=== PATIENT | male | born 1945 ===

== ENCOUNTER 2018-05-13 07:05 | Day surgery (SDC) | payer MEDICARE ==
[2018-05-12 15:50] VITALS: BMI 29.0
[2018-05-13] MEDS ORDERED: Bupivacaine 0.5% Inj(30mL) ONE (07:44)
[2018-05-13] MEDS ORDERED: Iohexol 300 100 ML IJ ONE ×2 (07:44→10:37)
--- NOTE | 2018-05-13 07:51 | CP.SDSHP ---
Same Day Surgery H & P - History Proposed Procedure: Laparoscopic cholecystectomy intra op cholangiogram Pre-Op Diagnosis: Cholelithiasis - Previous Medical/Surgical History Pain: 4.Moderate Pain Previous Surgical History: appendectomy, inguinal hernia repair, fistulotomy - Allergies Allergies: Allergies No Known Allergies Allergy (Verified 05/12/18 15:50) - Current Medications Current Medications: zoloft, ambien - Physical Exam General Appearance: NAD Mental Status: Alert & Oriented x3 Neuro: WNL Heart: WNL Lungs: WNL GI: Other (RUQ TTP) - {Optional Preform as Required} Abdomen: Other (RUQ TTP) Integument: WNL Ortho: WNL ENT: WNL - Impression Impression: cholelithiasis Pt. Evaluated Today:Candidate for Anesthesia & Procedure: Yes - Date & Time Date: 05/13/18 Time: 07:52 Short Stay Discharge - Short Stay Discharge Admitting Diagnosis/Reason for Visit: K80.10 Disposition: HOME/ ROUTINE Referrals: Ralph Rodríguez MD [Staff Provider] - Additional Instructions (Diet, Activity): follow up at Dr. Rodríguez's office in 1 -2 weeks Low fat diet no heavy lifting over 15 lbs for 1 month Ok to return to work next week OK to shower in 2 days
[2018-05-13] MEDS ORDERED: Lactated Ringer's 1,000 ML IV ONE ×2 (08:20→10:24)
[2018-05-13] MEDS ORDERED: Propofol 10 mg/ml Inj (20 ML) ONE (08:22)
[2018-05-13] MEDS ORDERED: Phenylephrine 10 mg/ml Inj ONE (08:22)
[2018-05-13] MEDS ORDERED: ePHEDrine 50 mg/ml Inj ONE (08:22)
[2018-05-13] MEDS ORDERED: Succinylcholine 200 mg/10 ml Inj IV ONE (08:22)
[2018-05-13] MEDS ORDERED: Rocuronium 10 mg/ml (5 ml) ONE (08:22)
[2018-05-13] MEDS ORDERED: Midazolam 2 MG/2 ML VIAL ONE (08:22)
[2018-05-13] MEDS ORDERED: Sodium Chloride 0.9% 10 ML IV ONE (08:27)
[2018-05-13] MEDS ORDERED: Desflurane Inhalation Anesthetic Liq (240 ml) ONE (08:29)
--- NOTE | 2018-05-13 08:47 | RAD ---
Date of service: 05/13/2018 HISTORY: Preoperative examination COMPARISON: No prior. TECHNIQUE: Chest PA and lateral FINDINGS: LINES AND TUBES: None. LUNG AND PLEURA: The lungs are well inflated and clear. No pleural effusion or pneumothorax. HEART AND MEDIASTINUM: The heart is not enlarged. Atherosclerotic aortic arch calcifications are present. The hilar and mediastinal contours are within normal limits. SKELETAL STRUCTURES: The bony structures are within normal limits for the patient's age. VISUALIZED UPPER ABDOMEN: Normal. OTHER FINDINGS: None. IMPRESSION: No active pulmonary disease.
[2018-05-13] MEDS ORDERED: Bupivacaine 0.5% 50 ML IJ ONE ×3 (10:05→11:22)
[2018-05-13] MEDS ORDERED: Sodium Chloride 0.45% 1,000 ML IV ONE (10:24)
[2018-05-13] MEDS ORDERED: Neostigmine 1:1000 (1 mg/ml) Inj ONE (11:03)
--- NOTE | 2018-05-13 11:37 | PCM.SURG1 ---
Surgeon's Initial Post Op Note - Surgeon's Notes Surgeon: Dr. Gaston Automobile Rental Agent: Dr. Christian Brooke, PGY 3, Dr. Denice Case, PGY 1 Type of Anesthesia: General Endo Pre-Operative Diagnosis: Cholelithiasis Operative Findings: Cholelithiasis Post-Operative Diagnosis: same Operation Performed: Cholecytesctomy Specimen/Specimens Removed: Gallbladder specimen with stones Estimated Blood Loss: EBL {In ML}: 25 Blood Products Given: N/A Drains Used: No Drains Post-Op Condition: Fair Date of Surgery/Procedure: 05/13/18 Time of Surgery/Procedure: 09:30
[2018-05-13] MEDS ORDERED: Oxycodone/Acetaminophen 5/325 mg Tab PO PRN (11:41)
[2018-05-13] MEDS ORDERED: Dextrose 5%/Lactated Ringer's 1,000 ML IV SCH (11:45)
--- NOTE | 2018-05-13 12:03 | PCM.OP ---
Operative Report - Operative Report Date of Surgery/Procedure: 05/13/18 Time of Surgery/Procedure: 12:00 Surgeon: Dr. Gaston Sports Book Writer: Christian Brooke PGY3 Denice Worthington PGY1 Anesthesia/Sedation: General anesthesia , Dr. Best Pre-Operative Diagnosis: Cholelithiasis Post-Operative Diagnosis: Cholelithiasis Indication for Surgery: Cholelithiasis Operative Findings: 1.5cm Gallstones x2 , fibrotic tissues and thicken gallbladder wall Procedure/Operation Description: The patient was brought to the operating room and after proper identification. Patient was intubated after the induction of appropriate anesthesia. The patient remained under general anesthesia for the duration of the case. The patient was prepped with chloroPrep over the abdomen in the usual fashion and then he was draped in the usual sterile fashion. Following the draping, the pneumoperitoneum was established via veress needle via a supraumbilical incision and insufflation was begun. After appropriate insufflation, under direct visualization, the trocar was introduced via visiport . 10 mm scope was inserted and the abdomen was visually inspected. Next, another 5 mm port was placed in subxyphoid area. This was then followed by the placement of two 5 mm ports in the usual manner on the patients right hand side just below the costal margin. The gallbladder was easily identified. There were a few adhesions. Adhesions were taken down with blunt dissection and harmonic bipolar device. No intraabdominal fluid. A generous amount of omental fat was present. Upon retraction of the gallbladder, the infundibulum was identified. After some blunt dissection, the cystic duct was identified and then skeletonized. After appropriate identification of the cystic duct, it was clipped 3 times with 2 clips staying, 1 clip going. It was then transected with scissors. This was performed without any complication. Next, a cystic artery was identified and 2 surgical clips on the proximal end and 1 surgical clip on the distal end were applied and this was transected using the laparoscopic scissors. Following this, the gallbladder was easily retracted back and hook electrocautery was used to dissect the gallbladder fossa. There was a well- established plane. We entered gallbladder, bile was suctioned off and opening was clamped with non traumatic grasper. Hemostasis was attained on the gallbladder fossa using a small amount of electrocautery. Following the removal of the gallbladder from the gallbladder fossa, it was placed in an endocatch bag and subsequently removed from the supraumbilical port site. Next, the gallbladder was thoroughly irrigated with approximately 3 liter of normal saline and then sucked dry after returning the patient to the supine position. The supraumbilical fascia was closed directly with 0 Vicryl and then the dermis was closed at all 4 incision sites with a 4-0 Monocryl absorbable monofilament. The fascia was closed in a simple interrupted manner. Dermabond was applied over the incision sites. The patient was awakened from anesthesia. Estimated Blood Loss: 50 Sponge/Instrument Count: correct Drains: None Complications: None Specimen: Gallbladder and stones Discharge & Condition: The patient was returned to post-anesthesia care unit in a stable condition.
[2018-05-13 13:15] VITALS: RESP 18
[2018-05-13 16:26] VITALS: BP 113/70; PULSE 75; TEMP 97.4; O2SAT 99
--- NOTE | 2018-05-13 20:44 | CARD ---
APPROVED REPORT Date of service: 05/13/2018 EKG Measurement Heart [id number] <Conclusion> Sinus bradycardia Otherwise normal ECG
--- NOTE | 2018-05-13 21:10 | OP ---
PROCEDURE DATE: 05/13/2018 TIME OF SURGERY: 11:00. SURGEON: Ralph Gaston MD ASSISTANTS: Christian Brooke DO and ANESTHESIA GIVEN BY: Ramila Cabrera MD ANESTHESIA: General anesthesia. PREOPERATIVE DIAGNOSIS: Cholelithiasis. POSTOPERATIVE DIAGNOSIS: Cholelithiasis. INDICATION FOR SURGERY: Cholelithiasis. OPERATIVE FINDINGS: 1.5 cm gallstones x2, fibrotic tissues and thickened gallbladder wall. OPERATIVE DESCRIPTION: The patient was brought to the operative room and after proper identification, the patient was intubated after induction of appropriate anesthesia. The patient was remained under general anesthesia for the duration of the case. The patient was prepped with a ChloraPrep over the abdomen in the usual fashion and draped in the usual sterile fashion. Following the draping, the pneumoperitoneum was established via Veress needle via the supraumbilical incision and insufflation was begun. After appropriate insufflation under direct visualization, the trocar was introduced via Visiport. A 10-mm scope was inserted and the abdomen was visually inspected. Another 5-mm port was placed in subxiphoid area. This was then followed by the placement of two 5-mm ports in the usual manner on the patient's right side just below the coastal margin. The gallbladder was identified. There were few adhesions. The adhesions were taken down with a blunt dissection and the Harmonic bipolar device. No intra-abdominal fluid was noted. A general amount of omental fat was present. Upon retraction of the gallbladder, the infundibulum was identified. After some blunt dissections, the cecum was identified and was skeletonized. After appropriate identification of the cystic duct, it was clipped three times with clips staying and one clip going. It was then resected with scissors. This was performed without any complication. The cystic artery was identified, and two surgical clips were placed proximally and one surgical clip on the distal end was applied. This was transected using Endo Clay. Following this, gallbladder was retracted back and using hook electrocautery, it was used to dissect the gallbladder off the gallbladder fossa. There was well established plane. We entered the gallbladder. Bile duct was suctioned off, and the opening was clamped with nontraumatic grasper. Hemostasis was obtained in the gallbladder fossa using a small amount of electrocautery. Following the removal of the gallbladder from the gallbladder fossa, it was placed in an EndoCatch bag and was subsequently removed from the supraumbilical port site. Next, the abdomen was thoroughly irrigated approximately with 3 L of normal saline and suctioned off. The patient was put in the supine position. The supraumbilical fascia was closed directly with 0 Vicryl and the dermis was closed with a 4-0 Monocryl absorbable monofilament. Dermabond was applied over the incision site. The patient was awakened from anesthesia. EBL was 50 mL. Sponge and instrument count was correct. No drain was placed. No complications. The specimen was gallbladder and the gallstones. The patient was returned to post PACU unit in a stable condition. Christian Brooke DO Ralph Gaston MD
== END 2018-05-13 16:30 | disposition home or self-care (01) ==
LOC: H.OPSURG 07:05
PROVIDERS: ATTEND Surgery
DX: K80.10 Calculus of gallbladder with chronic cholecystitis without obstruction (principal)
CPT/HCPCS: 36415; 47562; 71045; 71046; 86850; 86900; 88304; 93005; J0330; J0690; J2001; J2250; J2270; J2370; J2405; J2704; J2710; J3010; J7030; J7120; Q9967

== ENCOUNTER 2018-05-25 09:37 | Inpatient (IN) | payer MEDICARE ==
[2018-05-25 09:46] VITALS: BMI 24.3
[2018-05-25 09:48] VITALS: O2SAT 99
--- NOTE | 2018-05-25 10:16 | ED PDOC ---
HPI: Back Time Seen by Provider: 05/25/18 09:48 Chief Complaint (Nursing): Back Pain History Per: Patient Onset/Duration Of Symptoms: Persistent Current Symptoms Are (Timing): Still Present Quality Of Discomfort: Aching Severity: Moderate Previous Symptoms: Back Pain Additional Complaint(s): Left sided low back pain radiating to left leg, chronic, no new injury. Pt is s/p cholecystectomy 3 weeks ago. states pt is depressed and states that his life is over. Denies SI/HI Past Medical History Vital Signs: Last Vital Signs Temp 97.4 F L 05/25/18 09:46 Pulse 61 05/25/18 09:46 Resp 20 05/25/18 09:46 BP 107/64 05/25/18 09:46 Pulse Ox 99 05/25/18 09:46 - Medical History PMH: Depression Denies: Chronic Kidney Disease - Surgical History Surgical History: Appendectomy, Cholecystectomy, Endoscopy Denies: Pacemaker - Family History Family History: States: Unknown Family Hx - Home Medications Home Medications: Ambulatory Orders Medication Instructions Recorded Sertraline [Zoloft] 1 tab PO HS 05/07/18 Temazepam [Restoril] 15 mg PO DAILY 05/07/18 Zolpidem [Ambien] 10 mg PO DAILY 05/07/18 tiZANidine [Zanaflex] 2 mg PO Q8 05/07/18 ALPRAZolam [Xanax] 0.25 mg PO HS 05/25/18 Nicotine 21 mg/24 hr [Nicoderm Cq] 21 mg DE DAILY 05/25/18 - Allergies Allergies/Adverse Reactions: Allergies Allergy/AdvReac Type Severity Reaction Status Date / Time No Known Allergies Allergy Verified 05/12/18 15:50 Review of Systems ROS Statement: Except As Marked, All Systems Reviewed And Found Negative Musculoskeletal: Positive for: Back Pain Psych: Positive for: Depression Physical Exam - Reviewed Nursing Documentation Reviewed: Yes Vital Signs Reviewed: Yes - Physical Exam Appears: Positive for: Non-toxic, No Acute Distress Head Exam: Positive for: ATRAUMATIC, NORMAL INSPECTION, NORMOCEPHALIC Skin: Positive for: Normal Color, Warm, DRY Eye Exam: Positive for: EOMI, Normal appearance, PERRL ENT: Positive for: Normal ENT Inspection Neck: Positive for: Normal, Painless ROM Cardiovascular/Chest: Positive for: Regular Rate, Rhythm Respiratory: Positive for: CNT, Normal Breath Sounds Gastrointestinal/Abdominal: Positive for: Normal Exam, Soft Back: Positive for: Normal Inspection, Muscle Spasm Extremity: Positive for: Normal ROM Neurologic/Psych: Positive for: Alert, Oriented - Laboratory Results Result Diagrams: 05/25/18 10:25 05/25/18 10:25 - ECG O2 Sat by Pulse Oximetry: 99 Medical Decision Making Medical Decision Making: Medically stable for psychiatric admission Disposition - Clinical Impression Clinical Impression: Depression - Patient ED Disposition Is Patient to be Admitted: Yes - Disposition Referrals: Non [facility] Provider, [Primary Care Provider] - Disposition Time: 12:48 Condition: FAIR Forms: iTracs (Welsh) - Pt Status Changed To: Hospital Disposition Of: Inpatient - Admit Certification Admit to Inpatient:: After my assessment, the patient will require hospitalization for at least two midnights. This is because of the severity of symptoms shown, intensity of services needed, and/or the medical risk in this patient being treated as an outpatient. - POA Present On Arrival: None
[2018-05-25 10:46] LABS: BASO % 0.7 % (0.0-2.0); EOS # 0.1 K/uL (0.0-0.7); EOS % 2.1 % (0.0-4.0); HEMOGLOBIN 14.6 g/dL (12.0-18.0); LYMPH # 1.8 K/uL (1.0-4.3); LYMPH % 27.5 % (20.0-40.0); MEAN CORPUSCULAR HEMOGLOBIN 30.9 pg (27.0-31.0); MEAN CORPUSCULAR HGB CONC 32.9 g/dL (33.0-37.0); MEAN PLATELET VOLUME 7.7 fl (7.2-11.7); MONO # 0.7 K/uL (0.0-0.8); MONO % 10.1 % (0.0-10.0); NEUT % 59.6 % (50.0-75.0); NRBC % 0.1 % (0.0-0.0); RBC 4.74 Mil/uL (4.40-5.90); RED CELL DISTRIBUTION WIDTH 14.7 % (11.5-14.5); WHITE BLOOD COUNT 6.7 K/uL (4.8-10.8)
[2018-05-25 10:50] LABS: ALB/GLOB RATIO 1.3 (1.0-2.1); ALBUMIN 4.2 g/dL (3.5-5.0); ALT/SGPT 26 U/L (21-72); AST/SGOT 23 U/L (17-59); BLOOD UREA NITROGEN 16 mg/dl (9-20); CALCIUM 9.7 mg/dL (8.4-10.2); GFR NON-AFRICAN AMERICAN > 60
[2018-05-25 12:34] LABS: OPIATES, UR NEGATIVE (NEGATIVE)
[2018-05-25 12:39] LABS: BARBITURATES, UR NEGATIVE (NEGATIVE); BENZODIAZEPINES, UR POSITIVE (NEGATIVE); PHENCYCLIDINE, UR NEGATIVE (NEGATIVE)
--- NOTE | 2018-05-25 13:36 | RAD ---
Date of service: 05/25/2018 HISTORY: Depression. COMPARISON: Comparison chest 05/13/2018.. TECHNIQUE: Chest PA and lateral FINDINGS: LUNGS: Suspect minor atelectasis left medial lower lung field PLEURA: No significant pleural effusion identified. No pneumothorax apparent. CARDIOVASCULAR: . Aortic atherosclerotic calcification present. Normal cardiac size. No pulmonary vascular congestion. OSSEOUS STRUCTURES: Redemonstrated are is levoscoliosis lower thoracic and with probable compensatory dextroscoliosis in the upper thoracic region. Mild multilevel degenerative spondylosis of the thoracic spine with chronic appearing anterior wedge deformities of several mid thoracic segment VISUALIZED UPPER ABDOMEN: Normal. OTHER FINDINGS: None. IMPRESSION: Suspect minor atelectasis left medial lower lung field
--- NOTE | 2018-05-25 14:54 | RAD ---
Date of service: 05/25/2018 PROCEDURE: Radiographs of the Lumbar Spine. HISTORY: Back pain COMPARISON: No prior. FINDINGS: BONES: No acute compression fractures nor retropulsed fragments. Vertebral bodies exhibit normal stature. There appears to be slight anterior subluxation L4 over L5 and minimal levoscoliosis centered at the L2 L3 level. DISC SPACES: Multilevel degenerative spondylosis. Changes include varying degrees of disc space narrowing endplate eburnation and anterolateral as well as smaller posterior osteophyte formation. Facets are hypertrophic L5-S1 through the L2-L3 levels in decreasing order of severity. OTHER FINDINGS: Metallic clips right upper quadrant of the abdomen consistent with prior cholecystectomy. No acute fractures. Slight anterior subluxation L4 over L5. Multilevel degenerative spondylosis.
[2018-05-25] MEDS ORDERED: Alum-Mag Hydrox-Simethicone Susp (30 mL) PO PRN (16:16)
[2018-05-25] MEDS ORDERED: Magnesium Hydroxide Susp 30 ml UD PO PRN (16:16)
--- NOTE | 2018-05-25 19:35 | PCM.BM ---
<ChachaTasha C - Last Filed: 05/25/18 19:33> Treatment Plan Problems - Problems identified on initial assessmt hopeless/helpless Date Initiated: 05/25/18 Time Initiated: 19:33 Assessment reference: HP, NA Status: Active altered sleep Date Initiated: 05/25/18 Time Initiated: 19:36 Assessment reference: HP, NA Status: Active less than optimal nutrition Date Initiated: 05/25/18 Time Initiated: 19:37 Assessment reference: HP, NA Status: Active Treatment assets and liabiliti Patient Assests: adapts well, cooperative, cognitively intact Patient Liabilities: physical pain, medical problems, language/speech - Milieu Protocol Maintain good personal hygiene: daily Encourage regular showers, daily Assist patient to perform ADL's, every shift Remind patient to perform daily oral care Maintain personal safety: every shift Educate patient to report safety concerns to staff, every shift Monitor environment for contraband/sharps Medication safety: Monitor for expected outcome, potential side effects: every shift, Assess barriers to learning: every shift, Assess readiness for medication education: every shift Family Contact Family contact: Patient agrees to contact, Family has been contacted by patient <Arina Darby - Last Filed: 05/26/18 09:00> - Diagnosis (1) Major depressive disorder Status: Acute Interventions: Medication management, Individual and group therapy, Psychoeducation 05/26/18 09:01 <Cristal Roger - Last Filed: 05/26/18 14:54> Family Contact Family contact: Patient agrees to contact, Family has been contacted by patient, Telephone contact initiated by staff Family contact name: Kayla - spouse Family contacted how many times per week?: 2 Discharge/Continuing Care - Education Needs Education Needs: Family Medication, Family Diagnosis/Disease Process, Family Coping Skills, Family Community resources, Family Activities of Daily Living, Family Health Practices/Safety, Family Personal Hygiene/Grooming, Family Aftercare Safety Plan, Patient Medication, Patient Diagnosis/Disease Process, Patient Coping Skills, Patient Community resources, Patient Activities of Daily Living, Patient Health Practices/Safety, Patient Personal Hygiene/Grooming, Patient Aftercare Safety Plan - Discharge Discharge Criteria: Tolerates medication w/o severe side effects, Normal sleep pattern, Ability to care for self, Reduction of target symptoms, Other (Decreased depression) Discharge to:: Home, With Family - Additional Comments 05/26/18 14:48 Pt seen and discussed in team meeting. Reason for hospitalization reviewed and discussed. Pt reported he was referred to the ED due to decreased sleep, poor appetite for the past 3 months resulting in 10lb weight loss, and increased depression. Pt reported "I feel like I'm not living, mu mind as stopped." Pt also reported that lately he has been increasingly forgetful. Pt reported that she stopped smoking 1 month ago and is currently using the patch and feels he is more irritable than before. Pt denied SI and HI. Pt denied AVH. Pt denied any paranoia. Pt reported that at night time he has a difficult time falling asleep is ported having racing thoughts. Pt's social and medical issues reviewed and discussed. Pt reported having chronic back pain that is contributing to increased depression. Pt's medications reviewed and discussed. Pt reported he is not linked to a psychiatrist; however his PMD is prescribing him medications. Tx plan reviewed and discussed; pt verbalized agreement. Pt provided customs entry writer with verbal and written authorization to contact his spouse, Kayla for additional information. Pt also provided team with verbal to contact his pharmacy and confirm medications. Pt verbalized continued stay in the hospital for medication management and reduce depression and anxiety. SW will continue to follow case. - Treatment Team Participation Discussed with Family/SO: No Was Patient/Family/SO present at Treatment Team Meeting: Yes
--- NOTE | 2018-05-25 23:24 | CARD ---
APPROVED REPORT Date of service: 05/25/2018 EKG Measurement Heart [id number] <Conclusion> Normal sinus rhythm Normal ECG
[2018-05-26 06:48] LABS: T4 9.08 ug/dl (5.5-11.0)
--- NOTE | 2018-05-26 09:00 | PCM.PSYCH ---
Initial Psychiatric Evaluation - Initial Psychiatric Evaluation Type of Admission: Voluntary Legal Status: Capacity Chief Complaint (in patient's own words): "I'm depressed." Patient's Reaction to Hospitalization: HPI: 72 yo male, presents w/ worsening depression, poor appetite, weight loss, poor sleep, low energy, feelings of hopelessness and anhedonia. He reports chronic back pain. NO AH/VH/SI/HI. PMHx: S/p cholecystectomy approx 2 weeks ago, chronic back pain, herniated disks, GERD PPHx: Currently prescribed Zoloft 100 mg PO Daily, Restoril 15 mg HS, Ambien 10 mg PO HS and Xanax 0.25 Daily by his PMD; no current psychiatric treatment. SHx: Lives w/ , retired, stopped smoking 1 month ago; denies drugs/etoh FHx: Mother w/ h/o depression Current Medications: Active Medications Generic Name Dose Route Start Last Admin Trade Name Freq PRN Reason Stop Dose Admin Acetaminophen 650 mg 05/25/18 16:16 Tylenol 325mg Tab PO Q4 PRN Pain, moderate (4-7) Al Hydrox/Mg Hydrox/Simethicone 30 ml 05/25/18 16:16 Maalox Plus 30 Ml PO Q4 PRN Dyspepsia Lorazepam 0.5 mg 05/25/18 16:16 05/25/18 21:14 Ativan PO 06/08/18 16:17 0.5 mg HS PRN Administration Insomnia Lorazepam 0.5 mg 05/25/18 22:00 Ativan PO Q6 PRN anxiety and agitation Magnesium Hydroxide 30 ml 05/25/18 16:16 Milk Of Magnesia PO HS PRN Constipation Nicotine 1 patch 05/26/18 01:45 Nicoderm Cq TD DAILY LUIS Sertraline HCl 100 mg 05/25/18 22:00 05/25/18 21:36 Zoloft PO 100 mg HS LUIS Administration Past Psychiatric History - Past Psychiatric History Previous Treatment History: None Pertinent Medical Hx (Current Medical&Sleep Prob, Allergies): Allergies Allergy/AdvReac Type Severity Reaction Status Date / Time No Known Allergies Allergy Verified 05/12/18 15:50 Sertraline [Zoloft] 1 tab PO HS 05/07/18 Temazepam [Restoril] 15 mg PO DAILY 05/07/18 Zolpidem [Ambien] 10 mg PO DAILY 05/07/18 tiZANidine [Zanaflex] 2 mg PO Q8 05/07/18 ALPRAZolam [Xanax] 0.25 mg PO HS 05/25/18 Nicotine 21 mg/24 hr [Nicoderm Cq] 21 mg DE DAILY 05/25/18 Review of Systems - Psychiatric Psychiatric: As Per HPI, Abnormal Sleep Pattern, Anhedonia, Anxiety, Behavioral Changes, Change in Appetite, Depression, Difficulty Concentrating, Hopelessness, Memory Loss Mental Status Examination - Personal Presentation Personal Presentation: Looks stated age - Affect Affect: Constricted, Depressed - Motor Activity Motor Activity: Calm - Reliability in Providing Information Reliability in Providing Information: Fair, Poor, due to cognitve impairment - Speech Speech: Organized, Coherent - Mood Mood: Depressed - Formal Thought Process Formal Thought Process: Circumstantial - Hallucinations/Delusions Additional comments: Denies AH/VH/paranoia/delusions - Obsessions/Compulsions Obsessions: No Compulsions: No - Cognitive Functions Orientation: Person, Place, Situation, Time Sensorium: Alert Attention/Concentration: Attentive Estimate of Intelligence: Average Judgement: Intact, as evidence by: Insight regarding need for hospitalization Memory: Recent intact, as evidence by: Ability to recall events of the day - Risk Risk: Diminished functioning - Strength & Assets Inventory Strength & Assets Inventory: Family support, Cooperative - Limitations Limitations: Decreased memory, recent DSM 5 DX - DSM 5 DSM 5 Diagnosis: Major Depressive Disorder - Recommended/Plan of Treatment Treatment Recommendations and Plan of Treatment: Major Depressive Disorder; r/o Dementia -Admit to psychiatry unit -Increase Zoloft -Start Remeron -Ativan PRN -Medicine consult -Individual and group therapy -Obtain collateral history -Disposition planning Projected ELOS: 5-7 days Discharge Plan and Discharge Criteria: Discharge when patient is psychiatrically stable - Smoking Cessation Smoking Cessation Initiated: Yes
[2018-05-26 13:08] LABS: FOLATE 9.2 ng/mL
[2018-05-26] MEDS ORDERED: Naproxen 500 MG TAB PO PRN (18:07)
--- NOTE | 2018-05-26 19:23 | CP.PCM.CON ---
History of Present Illness - History of Present Illness History of Present Illness: 72 yo male with history of back pain admitted to [facility] because of worsening depression. Review of Systems - Review of Systems All systems: reviewed and no additional remarkable complaints except (aside from those mentioned above, 12 point system review were negative by me) Past Patient History - Infectious Disease Hx of Infectious Diseases: None - Tetanus Immunizations Tetanus Immunization: Unknown - Past Medical History & Family History Past Medical History?: Yes - Past Social History Smoking Status: Former Smoker Chewing Tobacco Use: No Cigar Use: No Alcohol: None Drugs: Denies - CARDIAC Hx Cardiac Disorders: No - PULMONARY Hx Respiratory Disorders: No - NEUROLOGICAL Hx Neurological Disorder: No - HEENT Hx HEENT Problems: No Hx Cataracts: Yes (Hx Right eye surgery) Hx Deafness: (Hx. right hearing loss, hearing aide) Other/Comment: Blurry vision left eye. - RENAL Hx Chronic Kidney Disease: No - ENDOCRINE/METABOLIC Hx Endocrine Disorders: No - HEMATOLOGICAL/ONCOLOGICAL Hx Blood Disorders: No Hx Blood Transfusions: No Hx Blood Transfusion Reaction: No - INTEGUMENTARY Hx Dermatological Problems: No - MUSCULOSKELETAL/RHEUMATOLOGICAL Hx Musculoskeletal Disorders: Yes Hx Back Pain: Yes Hx Falls: No Hx Herniated Disk: Yes (left lumbar) - GASTROINTESTINAL Hx Gastrointestinal Disorders: No Hx Bowel Surgery: Yes (anal fistula 40 y. ago) Hx Gall Bladder Disease: Yes (cholecystectomy) - GENITOURINARY/GYNECOLOGICAL Hx Genitourinary Disorders: No - PSYCHIATRIC Hx Anxiety: Yes Hx Depression: Yes (x 3 wks) Hx Substance Use: No - SURGICAL HISTORY Hx Surgeries: Yes Hx Appendectomy: Yes Hx Cholecystectomy: Yes (3 wks ago) Hx Eye Surgery: Yes (right cataract) - ANESTHESIA Hx Anesthesia: Yes Hx Anesthesia Reactions: No Hx Malignant Hyperthermia: No Meds Allergies/Adverse Reactions: Allergies Allergy/AdvReac Type Severity Reaction Status Date / Time No Known Allergies Allergy Verified 05/12/18 15:50 - Medications Medications: Current Medications Acetaminophen (Tylenol 325mg Tab) 650 mg PO Q4 PRN PRN Reason: Pain, moderate (4-7) Last Admin: 05/26/18 16:43 Dose: 650 mg Al Hydrox/Mg Hydrox/Simethicone (Maalox Plus 30 Ml) 30 ml PO Q4 PRN PRN Reason: Dyspepsia Lorazepam (Ativan) 0.5 mg PO HS PRN PRN Reason: Insomnia Stop: 06/08/18 16:17 Last Admin: 05/25/18 21:14 Dose: 0.5 mg Lorazepam (Ativan) 0.5 mg PO Q6 PRN PRN Reason: anxiety and agitation Magnesium Hydroxide (Milk Of Magnesia) 30 ml PO HS PRN PRN Reason: Constipation Mirtazapine (Remeron) 7.5 mg PO HS LUIS Naproxen (Naprosyn Tab) 500 mg PO Q12 PRN PRN Reason: Pain, severe (8-10) Nicotine (Nicoderm Cq) 1 patch TD DAILY [facility] Last Admin: 05/26/18 09:39 Dose: Not Given Sertraline HCl (Zoloft) 150 mg PO DAILY [facility] Last Admin: 05/26/18 16:42 Dose: 150 mg Physical Exam - Constitutional Appears: No Acute Distress - Head Exam Head Exam: ATRAUMATIC - Eye Exam Eye Exam: absent: Scleral icterus - ENT Exam ENT Exam: Mucous Membranes Moist - Neck Exam Neck exam: Negative for: Meningismus - Respiratory Exam Respiratory Exam: absent: Rales, Rhonchi, Wheezes, Respiratory Distress - Cardiovascular Exam Cardiovascular Exam: REGULAR RHYTHM, +S1, +S2 - GI/Abdominal Exam GI & Abdominal Exam: Soft. absent: Tenderness - Rectal Exam Rectal Exam: Deferred - Neurological Exam Neurological exam: Alert, Oriented x3 - Psychiatric Exam Psychiatric exam: Normal Affect - Skin Skin Exam: Dry, Intact Results - Vital Signs Recent Vital Signs: Last Vital Signs Temp 98.1 F 05/26/18 15:47 Pulse 78 05/26/18 15:47 Resp 20 05/26/18 15:47 BP 106/58 L 05/26/18 15:47 Pulse Ox 99 05/25/18 12:48 - Labs Result Diagrams: 05/25/18 10:25 05/25/18 10:25 Labs: Laboratory Results - last 24 hr 05/26/18 05/26/18 05/26/18 05:30 05:30 05:30 Hemoglobin A1c 6.0 Ferritin 161.0 Triglycerides 89 Cholesterol 175 LDL Cholesterol Direct 118 HDL Cholesterol 42 Vitamin B12 666 Folate 9.2 Free T4 1.48 Thyroxine (T4) 9.08 TSH 3rd Generation 0.66 Assessment & Plan (1) Depression Status: Acute Comment: psyche is managing
--- NOTE | 2018-05-27 14:26 | PCM.PYCHPN ---
Psychiatric Progress Note - Psychiatric Progress Note Patient seen today, length of contact: Pt evaluated, case discussed w/ team, chart reviewed Patient Chief Complaint: "I'm depressed." Problems Identified/Issues Discussed: Pt continues to report feeling depressed and anxious. He continues to have various somatic complaints, including leg pain and feeling "pressure" in his head. He continues to report difficulty sleeping at night. He denies acute AH/VH/SI/HI. Medication Change: No Medical Record Reviewed: Yes Consults ordered or reviewed: Medicine consult Mental Status Examination - Cognitive Function Orientation: Person, Place, Situation, Time Association: WNL Fund of Knowledge: [facility] Decription of patient's judgement and insights: Improving I/J - Mood Mood: Depressed - Affect Affect: Constricted, Depressed - Speech Speech: Appropriate - Formal Thought Process Formal Thought Process: Circumstantial Psychotic Thoughts and Behaviors: Denies AH/VH/paranoia/delusions - Suicidal Ideation Suicidal Ideation: No - Homicidal Ideation Homicidal Ideation: No Goal/Treatment Plan - Goal/Treatment Plan Need for Continued Stay: Severe depression anxiety Progress Toward Problem(s) and Goals/Treatment Plan: Major Depressive Disorder; r/o Dementia -Continue Zoloft and Remeron -Ativan PRN -Medicine consult -Individual and group therapy -Collateral history obtained from patient's -Disposition planning Estimated Date of D/C: 05/30/18
--- NOTE | 2018-05-28 11:00 | PCM.PYCHPN ---
Psychiatric Progress Note - Psychiatric Progress Note Patient seen today, length of contact: Pt evaluated, case discussed w/ team, chart reviewed Patient Chief Complaint: "I'm depressed." Problems Identified/Issues Discussed: Pt continues to report feeling depressed, w/ chronic pain and poor sleep (wakes up multiple times during the night). Patient spends most of the day in bed. Pt encourage to be in the community and participate in groups. He denies acute AH/VH/SI/HI. Medication Change: No Medical Record Reviewed: Yes Consults ordered or reviewed: Medicine consult Mental Status Examination - Cognitive Function Orientation: Person, Place, Situation, Time Association: WNL Fund of Knowledge: [facility] Decription of patient's judgement and insights: Improving I/J - Mood Mood: Depressed - Affect Affect: Constricted, Depressed - Speech Speech: Appropriate - Formal Thought Process Formal Thought Process: Circumstantial Psychotic Thoughts and Behaviors: Denies AH/VH/paranoia/delusions - Suicidal Ideation Suicidal Ideation: No - Homicidal Ideation Homicidal Ideation: No Goal/Treatment Plan - Goal/Treatment Plan Need for Continued Stay: Severe depression anxiety Progress Toward Problem(s) and Goals/Treatment Plan: Major Depressive Disorder -Continue Zoloft and Remeron -Ativan PRN -Medicine consult -Individual and group therapy -Collateral history obtained from patient's -Disposition planning Estimated Date of D/C: 05/30/18
--- NOTE | 2018-05-29 14:27 | PCM.PYCHPN ---
Psychiatric Progress Note - Psychiatric Progress Note Patient seen today, length of contact: Pt evaluated, case discussed w/ team, chart reviewed Patient Chief Complaint: "I'm depressed." Problems Identified/Issues Discussed: Pt reports that his mood is improving. He continues to have intermittent sleep difficulties. He is more alert and engaged in the community. He denies acute AH/VH/SI/HI. Medication Change: Yes (Increase Remeron) Medical Record Reviewed: Yes Consults ordered or reviewed: Medicine consult Mental Status Examination - Cognitive Function Orientation: Person, Place, Situation, Time Association: WNL Fund of Knowledge: [facility] Decription of patient's judgement and insights: Improving I/J - Mood Mood: Depressed - Affect Affect: Constricted - Speech Speech: Appropriate - Formal Thought Process Formal Thought Process: Circumstantial Psychotic Thoughts and Behaviors: Denies AH/VH/paranoia/delusions - Suicidal Ideation Suicidal Ideation: No - Homicidal Ideation Homicidal Ideation: No Goal/Treatment Plan - Goal/Treatment Plan Need for Continued Stay: Severe depression anxiety Progress Toward Problem(s) and Goals/Treatment Plan: Major Depressive Disorder -Continue Zoloft -Increase Remeron -Ativan PRN -Medicine consult -Individual and group therapy -Collateral history obtained from patient's -Disposition planning-likely discharge to home tomorrow as patient is improving clinically Estimated Date of D/C: 05/30/18
[2018-05-30 06:32] VITALS: BP 146/72; PULSE 72; RESP 18; TEMP 97.2
--- NOTE | 2018-05-30 08:03 | CP.PCM.CON ---
History of Present Illness - History of Present Illness History of Present Illness: Pt is a 72 year old male admitted into the geropsych unit and referred to the contract writer for evaluation. On the DRS, pt scored an overall score of 114. Pt scored within normal limits on Attention, Construction. Pt's Conceptualization, Initiation and Memory skills all fell in the Deficient Range. Pt acknowledged memory deficits on evaluation consistent with the test results. Cognitive deficits revealed Overall 114 Attention 33 Construction 5 Conceptualization 29 Deficient Initiation 31 - Deficient Memory 16 Deficient Thank you for this referral, Dr. Partida Past Patient History - Infectious Disease Hx of Infectious Diseases: None - Tetanus Immunizations Tetanus Immunization: Unknown - Past Medical History & Family History Past Medical History?: Yes - Past Social History Smoking Status: Former Smoker Chewing Tobacco Use: No Cigar Use: No Alcohol: None Drugs: Denies - CARDIAC Hx Cardiac Disorders: No - PULMONARY Hx Respiratory Disorders: No - NEUROLOGICAL Hx Neurological Disorder: No - HEENT Hx HEENT Problems: No Hx Cataracts: Yes (Hx Right eye surgery) Hx Deafness: (Hx. right hearing loss, hearing aide) Other/Comment: Blurry vision left eye. - RENAL Hx Chronic Kidney Disease: No - ENDOCRINE/METABOLIC Hx Endocrine Disorders: No - HEMATOLOGICAL/ONCOLOGICAL Hx Blood Disorders: No Hx Blood Transfusions: No Hx Blood Transfusion Reaction: No - INTEGUMENTARY Hx Dermatological Problems: No - MUSCULOSKELETAL/RHEUMATOLOGICAL Hx Musculoskeletal Disorders: Yes Hx Back Pain: Yes Hx Falls: No Hx Herniated Disk: Yes (left lumbar) - GASTROINTESTINAL Hx Gastrointestinal Disorders: No Hx Bowel Surgery: Yes (anal fistula 40 y. ago) Hx Gall Bladder Disease: Yes (cholecystectomy) - GENITOURINARY/GYNECOLOGICAL Hx Genitourinary Disorders: No - PSYCHIATRIC Hx Anxiety: Yes Hx Depression: Yes (x 3 wks) Hx Substance Use: No - SURGICAL HISTORY Hx Surgeries: Yes Hx Appendectomy: Yes Hx Cholecystectomy: Yes (3 wks ago) Hx Eye Surgery: Yes (right cataract) - ANESTHESIA Hx Anesthesia: Yes Hx Anesthesia Reactions: No Hx Malignant Hyperthermia: No Meds Allergies/Adverse Reactions: Allergies Allergy/AdvReac Type Severity Reaction Status Date / Time No Known Allergies Allergy Verified 05/12/18 15:50 - Medications Medications: Current Medications Acetaminophen (Tylenol 325mg Tab) 650 mg PO Q4 PRN PRN Reason: Pain, moderate (4-7) Last Admin: 05/29/18 08:37 Dose: 650 mg Al Hydrox/Mg Hydrox/Simethicone (Maalox Plus 30 Ml) 30 ml PO Q4 PRN PRN Reason: Dyspepsia Lorazepam (Ativan) 0.5 mg PO HS PRN PRN Reason: Insomnia Stop: 06/08/18 16:17 Last Admin: 05/30/18 01:11 Dose: 0.5 mg Lorazepam (Ativan) 0.5 mg PO Q6 PRN PRN Reason: anxiety and agitation Magnesium Hydroxide (Milk Of Magnesia) 30 ml PO HS PRN PRN Reason: Constipation Mirtazapine (Remeron) 15 mg PO HS [facility] Last Admin: 05/29/18 21:08 Dose: 15 mg Naproxen (Naproxen) 500 mg PO Q12 PRN PRN Reason: Pain, severe (8-10) Last Admin: 05/29/18 11:07 Dose: 500 mg Nicotine (Nicoderm Cq) 1 patch TD DAILY [facility] Last Admin: 05/29/18 08:38 Dose: 1 patch Sertraline HCl (Zoloft) 150 mg PO DAILY [facility] Last Admin: 05/29/18 08:38 Dose: 150 mg Results - Vital Signs Recent Vital Signs: Last Vital Signs Temp 97.2 F L 05/30/18 06:00 Pulse 72 05/30/18 06:00 Resp 18 05/30/18 06:00 BP 146/72 05/30/18 06:00 Pulse Ox 99 05/25/18 12:48 - Labs Result Diagrams: 05/25/18 10:25 05/25/18 10:25
--- NOTE | 2018-05-30 08:47 | PCM.PYCHDC ---
Mental Status Examination - Mental Status Examination Orientation: Person, Place, Situation, Time Memory: Impaired (Mild cognitive impairments) Mood: Neutral Affect: Broad Speech: Appropriate Attention: WNL Concentration: WNL Association: WNL Fund of Knowledge: WNL Formal Thought Process: No Impairment Description of patient's judgement and insight: Improved I/J Psychotic Thoughts and Behaviors: Denies AH/VH/paranoia/delusions Suicidal Ideation: No Current Homicidal Ideation?: No Discharge Summary - Discharge Note Reason for Hospitalization: HPI: 72 yo male, presents w/ worsening depression, poor appetite, weight loss, poor sleep, low energy, feelings of hopelessness and anhedonia. He reports chronic back pain. NO AH/VH/SI/HI. PMHx: S/p cholecystectomy approx 2 weeks ago, chronic back pain, herniated disks, GERD PPHx: Currently prescribed Zoloft 100 mg PO Daily, Restoril 15 mg HS, Ambien 10 mg PO HS and Xanax 0.25 Daily by his PMD; no current psychiatric treatment. SHx: Lives w/ , retired, stopped smoking 1 month ago; denies drugs/etoh FHx: Mother w/ h/o depression Consultations:: List each consultation separately and include: 1. Reason for request. 2. Findings. 3. Follow-up Consultations: Medicine consult, Psychology consult Summary of Hospital Course include:: 1. Description of specific treatment plan utilized for patients during their course of treatmen. 2. Summarize the time- course for resolution of acute symptoms and/or regressed behaviors. 3. Describe issues identified and worked on during hospitalization. 4. Describe medication utilized. 5. Describe medical problems identified and treated. 6. Reassessment of suicide risk Summary of Hospital Course: Patient was admitted to the psychiatry unit. Individual and group therapy were provided. Patient was stabilized on Zoloft 150 mg PO Daily, Remeron 15 mg PO HS and Ativan 0.5 mg PO PRN anxiety. He denies current depression/anxiety/AH/VH/SI/HI. He is currently psychiatrically stable for discharge with outpatient psychiatric follow-up. - Diagnosis (1) Major depressive disorder Current Visit: Yes Status: Acute - Final Diagnosis (DSM 5) Condition upon Discharge: STABLE DSM 5: Major Depressive Disorder Disposition: HOME/ ROUTINE Follow-up Treatment Plan: Major Depressive Disorder -Continue Zoloft, Remeron -Ativan PRN -Medicine consult -Individual and group therapy -Collateral history obtained from patient's -Discharge to home w/ outpatient follow-up Prescriptions/Medication Reconciliation: LORazepam [Ativan] 0.5 mg PO HS PRN #30 tab PRN Reason: Anxiety Mirtazapine [Remeron] 15 mg PO HS #30 tab Naproxen 500 mg PO Q12 PRN #60 tab PRN Reason: Pain, Severe (8-10) Nicotine 14 mg/24 hr [Nicoderm CQ] 1 patch TD DAILY #30 patch Sertraline [Zoloft] 150 mg PO DAILY #90 tab - Smoking Cessation Smoking Cessation Medication prescribed: Yes - Antipsychotic Medications Pt discharged on 2 or more routine antipsychotic medications: No
== END 2018-05-30 11:47 | disposition home or self-care (01) | DRG 881 ==
LOC: SUPCPDRO 09:37 → H.ER 09:37 → H.STEP 12:47
PROVIDERS: ADMIT Psychiatry & Neurology Psychiatry; ATTEND Psychiatry & Neurology Psychiatry
PROC: GZHZZZZ Group Psychotherapy (ICD-10-PCS; principal; 2018-05-25)
PROC: GZ58ZZZ Individual Psychotherapy, Cognitive-Behavioral (ICD-10-PCS; 2018-05-25)
DX: F32.9 Major depressive disorder, single episode, unspecified (principal); F41.9 Anxiety disorder, unspecified; G89.29 Other chronic pain; M54.5 Low back pain; K21.9 Gastro-esophageal reflux disease without esophagitis; H91.91 Unspecified hearing loss, right ear; Z87.891 Personal history of nicotine dependence; Z79.899 Other long term (current) drug therapy; Z81.8 Family history of other mental and behavioral disorders